=== PATIENT | male | born 1950 | race Caucasian/White ===

== ENCOUNTER 2019-12-01 05:02 | Emergency (ER) | payer MEDICARE, SELFPAY ==
[2019-12-01 05:03] VITALS: BP 159/88; PULSE 79; RESP 18; TEMP 35.8; O2SAT 97; BMI 25.1
[2019-12-01] MEDS: Tetracaine 0.5% Ophthalmic Bottle OPHTHALMIC (05:54)
[2019-12-01] MEDS: Fluorescein 1 MG STRIP 1 STRIP OPHTHALMIC (05:55)
--- NOTE | 2019-12-01 06:41 | ED.DCSUM_ITS ---
History of Present Illness Chief Complaint: Foreign Body Informant: Patient Location: Left Eye Onset: Yesterday Context: Sudden Onset Timing: Continuous Associated Symptoms - Eyes: Burning, Foreign body sensation, Pain, Photophobia, Redness History of injury: Yes, Grinding injury Visual correction: Glasses Narrative: Patient is a 69-year-old male that denies any significant past medical history presenting with pain and foreign body sensation in his left eye. Patient states he was the metal but was wearing glasses at the time. He states he felt a foreign body going to his eye. He washed his eyes out thoroughly but continues to have pain. He tried to sleep with his pain persisted so he came to the emergency room. He states he has associated headache and irritation of his eye. He does not have an eye doctor. He denies any other complaints at this time. Past Medical History - Allergies and Home Meds Allergies/Adverse Reactions: Allergies No Known Allergies Allergy (Verified 12/01/19 05:08) Primary Care Physician: Care Physician,No Primary [Primary Care Provider] - Past Medical History: None Surgical History: noncontributory Smoking Status: Former smoker Review of Systems General: Denies: Chills, Fever, Sweats Eyes: Reports: - - Left eye pain. Denies: Visual changes - bilaterally, Blurred Vision - bilaterally, Diplopia ENT: Denies: Rhinorrhea, Sore throat Cardiovascular: Denies: Chest pain, Palpitations Respiratory: Denies: Dyspnea, Cough, Dyspnea on exertion Gastrointestinal: Denies: Abdominal pain, Nausea, Vomiting, Diarrhea, Melena, H ematochezia Genitourinary: Denies: Dysuria, Hematuria, Frequency Musculoskeletal: Denies: Back pain, Extremity Pain Skin: Denies: Rash, Wounds Neurological: Denies: Headache, Weakness, Numbness Physical Exam Visual Acuity: right: 20/40, left: 20/100, bilateral: 20/50 Visual Acuity: Uncorrected Eyelid: Normal inspection, Left eyelid everted, No foreign body Right Conjunctiva/Sclera: Diffuse focal injection Right Cornea: Tetracaine instilled, Corneal abrasion, Fluorescein dye uptake, - - Foreign body noted at the 10 o'clock position over the iris of the left eye Extraocular Motion: Normal exam, No pain Pupils: Normal accomodation, PERRL Vital Signs/Narrative: Vital Signs Temp Pulse Resp BP Pulse Ox 07/01/20 05:03 96.4 F L 79 18 159/88 H 97 General: Well nourished, Well developed Head: Normocephalic, Atraumatic ENT: Moist mucous membranes, No rhinorrhea Neck: Supple, Nontender Cardiovascular: Regular rate, Regular rhythm, No murmurs Respiratory: No distress, CTA bilaterally, Chest nontender Abdomen: Soft, Nontender, Nondistended, Normal bowel sounds Back: Nontender, Normal Inspection Extremities: Nontender, No edema Skin: Normal color, No rash Neurological: Alert, Oriented x3, Cranial nerves II-XII grossly intact, Normal Strength, Normal Sensation Psychological: Normal affect Diagnostic/Tx/Re-eval - Treatment and Re-Evaluation Foreign body removal: Cotton tip swab Residual rust ring: Yes Tetracaine: left eye Antibiotic: left eye - Medical Decision Making She is evaluated for foreign body sensation to his left eye. Patient does not fact have foreign body. Is removed with a cotton tipped applicator. Patient significant improvement of his symptoms with tetracaine. He started on erythromycin ointment. Negative Zora sign. Patient is counseled he does have a residual rust ring and needs outpatient ophthalmology follow-up. Patient states he will likely not follow-up. Patient is encouraged to return the emergency room should he have worsening symptoms. Tetanus is updated in the emergency room. ED Disposition - Plan for ED Patient: Disposition: Home or Assisted Living Diagnosis: Foreign body in cornea, left eye, initial encounter Instructions: ED Foreign Body Cornea W Rust Ring Referrals: Care Physician,No Primary [Primary Care Provider] - Chato Card MD [STAFF PHYSICIAN] - Additional Instructions: Instill a small ribbon of antibiotic ointment into affected eye up to 6 times a day but at least 4 times a day. Please follow-up with the eye doctor. Return the emergency room with any worsening symptoms.
[2019-12-01] MEDS: Diphth,Pertuss(Acell),Tet Vac 0.5 ML Vial IM (06:45)
[2019-12-01 06:52] VITALS: RESP 16
== END 2019-12-01 06:52 | disposition home or self-care (01) ==
PROVIDERS: Emergency Provider Emergency Medicine
DX: T15.02XA Foreign body in cornea, left eye, initial encounter (principal); Z87.891 Personal history of nicotine dependence
CPT/HCPCS: 90471; 90715; 99283